=== PATIENT | male | born 1995 | race African-American/Black ===

== ENCOUNTER 2020-05-12 14:06 | Emergency (ER) | payer OTHER ==
[2020-05-12] MEDS ORDERED: BACITRACIN OINTMENT 30GM TUBE As Ordered ONE (19:15)
[2020-05-12] MEDS ORDERED: BACITRACIN OINTMENT 30GM TUBE ONE (19:15)
== END 2020-05-12 19:05 | disposition home or self-care (01) ==
LOC: M ED 14:06
DX: T23.201A Burn of second degree of right hand, unspecified site, initial encounter (principal); T31.0 Burns involving less than 10% of body surface; X08.8XXA Exposure to other specified smoke, fire and flames, initial encounter; Y92.099 Unspecified place in other non-institutional residence as the place of occurrence of the external cause; Y93.89 Activity, other specified; Y99.9 Unspecified external cause status; Z87.891 Personal history of nicotine dependence